=== PATIENT | female | born 1965 | race Caucasian/White ===

== ENCOUNTER → 2019-03-09 18:15 | Outpatient (BNVA) | payer MEDICAID, SELFPAY | PROVIDERS: PCP Emergency Medicine; Visit Provider Family Medicine | DX: M79.10 Myalgia, unspecified site (principal); Z71.89 Other specified counseling | CPT/HCPCS: 80305 ==

== ENCOUNTER 2019-08-14 13:46 | Emergency (ER) | payer MEDICAID, SELFPAY ==
[2019-08-14 15:00] VITALS: BP 163/116; PULSE 95; RESP 16; TEMP 36.6; O2SAT 98; BMI 27.4
--- NOTE | 2019-08-14 15:07 | XR_ITS ---
WS: [id number] XR lumbar spine 2-3V* [id number] REASON FOR EXAM: fall with back pain FINDINGS: 5 functional lumbar vertebra as are noted. Settling of the disc spaces L4-5, L5-S1. There is no fractures of the lumbar spine seen. No evidence of spondylolysis or spondylolisthesis. There is facet arthropathy L4-5, L5-S1 particularly on the right side. XR/XR lumbar spine 2-3V* [id number] IMPRESSION: Facet arthropathy L4-5, L5-S1 on the right There is no fractures seen. Degenerated disc changes L4-5, L5-S1.
--- NOTE | 2019-08-14 15:07 | XR_ITS ---
WS: [id number] XR thoracic spine 2V [id number] REASON FOR EXAM: fall with pain FINDINGS: The spondylolisthesis C4-5 is again seen. The cervical thoracic junction appears to be normal. There is degenerate changes throughout the thoracic spine. [place] no fractures are seen or displaceme nts seen. There is spurring anteriorly from T3 down to T9. XR/XR thoracic spine 2V [id number] IMPRESSION: Osteoarthritic changes thoracic spine. No fractures identified.
--- NOTE | 2019-08-14 15:07 | XR_ITS ---
WS: [id number] XR cervical spine 3V* [id number] REASON FOR EXAM: fall with pain FINDINGS: Degenerate changes of the joints of [place]. C4-C5 shows grade 2 spondylolisthesis. A remot e mild compression of the anterior body C5 is seen. The odontoid process was normal. The lamina, pedicles, spinous processes are all normal and straight. XR/XR cervical spine 3V* [id number] IMPRESSION: Grade 2 spondylolisthesis C4 on C5 with a remote mild compression of C5
== END 2019-08-14 16:51 | disposition left against medical advice (07) ==
LOC: ER 13:54
PROVIDERS: Emergency Provider Emergency Medicine; PCP Emergency Medicine
DX: Z53.21 Procedure and treatment not carried out due to patient leaving prior to being seen by health care provider (principal)
CPT/HCPCS: 72040; 72070; 72100; 99281; 99283

== ENCOUNTER → 2019-08-15 11:06 | Outpatient (BNVA) | payer MEDICAID, SELFPAY | PROVIDERS: PCP Emergency Medicine; Visit Provider Family Medicine | DX: I10 Essential (primary) hypertension (principal); S20.211A Contusion of right front wall of thorax, initial encounter; X58.XXXA Exposure to other specified factors, initial encounter | CPT/HCPCS: 80053; 80061 ==

== ENCOUNTER → 2020-03-21 12:00 | Outpatient (BNVA) | payer MEDICAID, SELFPAY | PROVIDERS: PCP Emergency Medicine; Visit Provider Nurse Practitioner Family | DX: Z20.828 Contact with and (suspected) exposure to other viral communicable diseases (principal); B34.9 Viral infection, unspecified | CPT/HCPCS: 87635 ==

== ENCOUNTER → 2021-12-07 12:00 | Outpatient (BNVA) | payer MEDICAID, SELFPAY | PROVIDERS: PCP Family Medicine; Visit Provider Family Medicine | DX: F41.1 Generalized anxiety disorder (principal); G43.709 Chronic migraine without aura, not intractable, without status migrainosus; E78.5 Hyperlipidemia, unspecified; K21.9 Gastro-esophageal reflux disease without esophagitis; F51.04 Psychophysiologic insomnia; K58.9 Irritable bowel syndrome, unspecified; N32.81 Overactive bladder; E78.2 Mixed hyperlipidemia; I10 Essential (primary) hypertension; J44.9 Chronic obstructive pulmonary disease, unspecified; Z23 Encounter for immunization; Z74.09 Other reduced mobility; Z78.9 Other specified health status; G80.8 Other cerebral palsy; K58.0 Irritable bowel syndrome with diarrhea; M79.89 Other specified soft tissue disorders | CPT/HCPCS: 80053; 80061; 85025 ==

== ENCOUNTER → 2022-05-25 11:51 | Outpatient (BNVA) | payer MEDICAID, SELFPAY | PROVIDERS: PCP Family Medicine; Visit Provider Family Medicine | DX: F32.9 Major depressive disorder, single episode, unspecified (principal); K58.9 Irritable bowel syndrome, unspecified; N32.81 Overactive bladder; K21.9 Gastro-esophageal reflux disease without esophagitis; G43.709 Chronic migraine without aura, not intractable, without status migrainosus; F51.04 Psychophysiologic insomnia; F41.1 Generalized anxiety disorder; E78.5 Hyperlipidemia, unspecified; M79.671 Pain in right foot; M79.672 Pain in left foot; L97.529 Non-pressure chronic ulcer of other part of left foot with unspecified severity; L97.519 Non-pressure chronic ulcer of other part of right foot with unspecified severity | CPT/HCPCS: 73630 ==

== ENCOUNTER 2024-08-22 13:54 | Emergency (ER) | payer MEDICAID, SELFPAY ==
--- OUTSIDE RECORDS SUMMARY | 2012-12-05 09:26 | XMS_ITS | Continuity of Care Document ---
Author Organization [facility] Address [id number] [address] Phone Care Team Providers Care Insurance Territory Manager Name Role Phone Unavailable Unavailable Unavailable Allergies, Adverse Reactions, Alerts Substance Reaction Status Criticality codeine Active No Information Medications Medication Instructions Dosage Effective Dates (start - stop) Status Comments Cymbalta 60 mg capsule,delayed release take 1 capsule by oral route every day 60 MG - Active Dr. Kessler tizanidine 4 mg tablet take 2 Tablet by oral route everyday at noon - Active Vesicare 10 mg tablet take 1 tablet by oral route every day 10 MG - Active Plus 27 mg-1 mg tablet take 1 tablet by oral route every day - Active potassium chloride ER 20 mEq tablet,extended release(part/cryst) take 1 tablet by oral route every day 20 MEQ - Active oxybutynin chloride ER 15 mg tablet,24 hr extended release take 1 tablet by oral route every day 15 MG - Active verapamil ER (SR) 240 mg tablet,extended release take 1 tablet by oral route every day with food 240 MG - Active omeprazole 20 mg tablet,delayed release - Active Mucinex DM 30 mg-600 mg tablet,extended release 12 hr take 1 tablet by oral route every 12 hours as needed 1.00 tablet - Active gabapentin 400 mg capsule take 1 capsule by oral route 3 times every day 400 MG - Active cilostazol 100 mg tablet take 1 tablet by oral route 2 times every day 1/2 hour before or 2 hours after breakfast and dinner 100 MG - Active bupropion HCl SR 150 mg tablet,sustained-re lease take 1 tablet by oral route 2 times every day 150 MG - Active Procedures Procedure Date OFFICE/OUTPATIENT VISIT, [facility] Advance Directives Directive Yes / No Effective Date File Name No Information Encounters Encounter Description Practice Location Reason(s) For Visit Diagnoses Date Provider Providers Copied on Encounter [facility], [id number] [facility], [place], [place], [id number], [place] tel:[phone] [facility] No Information No Information OFFICE/OUTPA TIENT VISIT, [facility], [id number]- [facility], [place], [place], [id number], [place] tel:[phone] [facility] musculoskelet al pain (chief complaint)anx iety (chief complaint)dep ression (chief complaint) AnxietyDepres sionPain in joint, site unspecified No Information Family History Family Member Type Diagnosis Age At Onset Mother Problem (finding) Allergies grandparents Problem (finding) Allergies Father Problem (finding) Allergies Mother Problem (finding) depression Mother Problem (finding) raised blood lipids Father Problem (finding) hypertension Father Problem (finding) raised blood lipids Mother Problem (finding) Anxiety Father Problem (finding) depression Father Problem (finding) Anxiety Mother Problem (finding) alcoholism Mother Problem (finding) Hearing impairment grandparents Problem (finding) stroke Mother Problem (finding) hypertension Father Problem (finding) Hearing impairment grandparents Problem (finding) alzheimer's disease Payers Payer name Insurance type Covered democrat ID Jordan westbrook(s) [employer] [place] Medicaid MC [id number] Social History Type Description Quantity Date Captured Comments Sex Female Smoking Status No Information Chief Complaint And Reason For Visit No Information Reason For Referral Reason For Referral No Information History Of Present Illness Encounter Date Complaint History Of Prese nt Illness No Information Functional Status Date Functional Assessmen t No Information Instructions Date Instruction Additional Infor mation No Information Assessments Type Assessment Date No Information Patient Care Teams Name Effective Dates (start - stop) Status Members No Information
[2024-08-22 14:08] VITALS: PULSE 109; RESP 20; TEMP 36.7; O2SAT 97
--- OUTSIDE RECORDS SUMMARY | 2024-08-22 14:08 | XMS_ITS | Encounter Summary ---
Author Organization [facility] Address 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
--- OUTSIDE RECORDS SUMMARY | 2024-08-22 14:08 | XMS_ITS | Clinical Summary ---
Author Organization [facility] Address [address] Attn: [place] [address] Care Team Providers Care Construction Controller Name Role Phone Unavailable Primary Care Provider Unavailabl e Encounters Date Type Department Care Team Description 08/14/2024 External Device Data [facility] ABSTRACTION Provider, Abstract 08/07/2024 External Device Data [facility] ABSTRACTION Provider, Abstract 08/07/2024 External Device Data [facility] ABSTRACTION Provider, Abstract 08/07/2024 External Device Data [facility] ABSTRACTION Provider, Abstract 07/10/2024 8:45 AM CDT - 07/10/2024 11:59 PM CDT Hospital Encounter [facility] Emergency [facility] [address] [facility] [facility] [address] [place] [address] Ambulance, [facility] Discharge Disposition: Short term general hospital from Last 3 Months Social History Tobacco Use Types Packs/Day Years Used Date Smoking Tobacco: Never Assessed Comments Unknown Sex and Gender Information Value Date Recorded Sex Assigned at Not on file 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
--- OUTSIDE RECORDS SUMMARY | 2024-08-22 14:08 | XMS_ITS | Clinical Summary ---
Author Organization [facility] [place] Address [address] [place] [address] Phone Care Team Providers Care Hair Or Beauty Salon Manager Name Role Phone Unavailable Primary Care Provider Unavailabl e Social History Tobacco Use Types Packs/Day Years Used Date Smoking Tobacco: Never Assessed Comments Unknown Sex and Gender Information Value Date Recorded Sex Assigned at Not on file Legal Sex Female 2:04 PM CDT Gender Identity Not on file Sexual Orientation [...]
--- NOTE | 2024-08-22 14:13 | ED_ITS ---
HPI - Fall General: Chief Complaint: Fall Stated Complaint: Fall Time Seen by Provider: 08/22/24 14:05 Source: patient Mode of arrival: EMS Limitations: physical limitation (has CP) History of Present Illness: Patient is a 59-year-old female who reports to the ED via EMS for a ground-level fall. She states she was trying to transfer herself to her paul potty, when she mis-calculated and twisted her right knee and fell onto her right side. She says she has a home care provider, and that her home care provider was the one who called EMS but EMS reports she was gone by the time they got on scene. Patient now has R knee pain and left foot pain. She states she has a hard time moving around due to her cerebral palsy-she uses a wheelchair mainly but also has a walker. She denies hitting her head, losing consciousness, dizziness, heart palpitations. She has no neck or back pain. Patient has chronic wounds to the dorsal aspect of her feet bilaterally that she states have been present x 2 months. States she is going to follow up with PCP Dr. Oden and also trying to get referral to wound care. MD complaint: fall Onset (ago): hour(s) Fall from: standing Fall witnessed: yes, by bystander (Home care provider) Place fall occurred: home Loss of consciousness: None Prolonged down time: no Symptoms prior to fall: none Context: tripped/slipped Location of injury: other (R knee, L foot) Location of injury - extremities: Left: foot and Right: knee Severity: mild Quality: dull Associated symptoms-after fall: Reports no associated symptoms; Denies chest pain, headache(s), lightheadedness or neck pain Related Data Home Medications ?Medication ?Instructions ?Recorded ?Confirmed aspirin 81 mg tablet,delayed 81 mg PO DAILY 04/08/19 0 08/30/22 release Previous Rx's ?Medication ?Instructions ?Recorded [facility] 1 each [employer] .Blinkbuggy PLEX #1 ea 08/19/19 furosemide 20 mg tablet 20 mg PO DAILY PRN leg swell ing 11/16/20 Held on 12/07/21. days #30 tabs Instructions: Home Medication placed on hold at Doctor's office potassium chloride 20 mEq 20 meq PO DAILY PRN with las ix 11/16/20 tablet,extended days #30 tabs release(part/cryst) (Diane-Con M) Held on 12/07/21. Instructions: Home Medication placed on hold at Doctor's office miscellaneous medical supply See Rx Instructions misce llaneous 01/06/22 .COMPLEX #1 ea diaper,brief,adult,disposable #168 ea 01/29/22 aripiprazole 2 mg tablet (Abilify) 2 mg PO .at bedtime 90 days #90 05/25/22 tabs dicyclomine 20 mg tablet 20 mg PO BID 90 days #180 ta bs 05/25/22 duloxetine 20 mg capsule,delayed 20 mg PO DAILY 90 day s #90 caps 05/25/22 release fesoterodine 4 mg tablet,extended 4 mg PO DAILY 90 day s #90 tabs 05/25/22 release 24 hr (Toviaz) mirtazapine 7.5 mg tablet 7.5 mg PO DAILY 90 days #90 tabs 05/25/22 omeprazole 20 mg capsule,delayed 20 mg PO DAILY 90 day s #90 caps 05/25/22 release simvastatin 20 mg tablet 20 mg PO DAILY 90 days #90 t abs 05/25/22 tizanidine 4 mg tablet 4 mg PO BID PRN muscle spast icity 05/25/22 90 days #180 tabs topiramate 50 mg capsule,extended 50 mg PO DAILY 90 da ys #90 caps 05/25/22 release 24 hr sulfamethoxazole 800 1 tab PO Q12H 7 days #14 tab s 06/08/22 mg-trimethoprim 160 mg tablet (Bactrim DS) Allergies Allergy/AdvReac Type Severity Reaction Status Date / Time codeine Allergy Unknown Verified 08/30/22 13:31 meperidine (From Demerol) Allergy Unknown Verified 08/30/22 13:31 zolpidem (From Ambien) Allergy Unknown Verified 08/30/22 13:31 Review of Systems Const: Denies: fever(s), chills or body aches Eyes: Denies: change in vision or blurry vision Card: Denies: chest pain, palpitations, lightheadedness or syncope Resp: Denies: dyspnea : Denies: flank pain Musc: Reports: other (chronic contractures of extremities due to CP; atrophy); Denies: neck pain or back pain Skin/Breast: Reports: other (wounds to feet x 2 months) Neuro: Denies: headache(s) PFSH ED PFSH: Medical History (Updated 08/22/24 @ 14:47 by HANSEL Caba) Incontinence of urine in female Vitamin D deficiency Chronic migraine Leg swelling Has had a previously normal echo without any signs of CHF. Leg swelling due to poor circulation and lymphatics from cerebral palsy. Cerebral palsy Paraplegic GERD (gastroesophageal reflux disease) Insomnia Overactive bladder Hyperlipidemia Chronic pain of multiple joints Depression, controlled JAGRUTI (generalized anxiety disorder) Benign hypertension Surgical History H/O knee surgery S/P cholecystectomy Family History Father Heart disease Social History Smoking and tobacco/nicotine status: current every day tobacco/nicotine user cigarettes Packs smoked per day: 0.5 Quit status (tobacco/nicotine): not considering quitting Alcohol intake: current Alcohol intake frequency: holidays/special occasions only Physical Exam Const: COMMON NORMALS: no acute distress, patient oriented x3 and alert GENERAL APPEARANCE: cooperative OTHER: odorous, dirty in appearance HENMT: COMMON NORMALS: normocephalic and atraumatic HEAD & SCALP: normal to inspection, normocephalic and atraumatic Neck/C-Spine: COMMON NORMALS: full ROM CERVICAL SPINE: No Cervical spine tenderness Chest: COMMONS NORMALS: normal inspection of the chest and normal palpation of entire chest wall Resp: COMMON NORMALS: normal respiratory effort and clear to auscultation bilaterally AUSCULTATION: clear to auscultation bilaterally Cardio: COMMON NORMALS: regular rhythm RATE: tachycardic (mild) RHYTHM: regular rhythm GI: COMMON NORMALS: Normal to inspection, nondistended, normoactive bowel sounds present, Soft to palpation and non-tender PALPATION: Yes Soft to palpation Back/Pelvis: COMMON NORMALS: thoracic and lumbar spine normal to inspection Extremity: GENERAL: Yes normal exam except as noted RIGHT LOWER EXTREMITY: Yes knee joint Right knee: Yes neurovascular exam (normal) LEFT LOWER EXTREMITY: Yes foot & digits (TTP; chronic deformity) Left foot and digits: Yes neurovascular exam (normal) OTHER: atrophy to extremities from CP; she has superficial wounds to dorsal feet that she states have been present x 2 months-no discharge, streaking she has overlapping/crossed toes on L foot; complains of pain to bottom of foot and great toe since the fall pain to medial R knee-mild edema; fairly normal ROM Neuro: SERAFIN COMA SCALE: document GCS findings [place] coma scale eye opening: Spontaneous [place] coma scale verbal response: Orientated [place] coma scale motor response: Obey commands Serafin coma scale total score: 15 COMMON NORMALS: patient oriented x3 and moves all extremities SENSORIUM/ORIENTATION: Yes alert Course Vital Signs: Vital signs: Vital Signs Temperature 98.0 F 08/22/24 14:08 Pulse Rate 109 H 08/22/24 14:08 Respiratory Rate 20 H 08/22/24 14:08 Pulse Oximetry 97 08/22/24 14:08 MDM - Fall Medical Decision Making XR of R knee/L foot are negative for acute fracture. She will be allowed discharge. Her feet/wounds will be cleaned and dressed. She is already on abx for these. Plan is to follow up with PCP. I will place referral to wound care for continued care. Medical Records I reviewed the patient's medical records. Lab Data Radiology Impressions Foot X-Ray 08/22/24 14:15 IMPRESSION: 1. No fracture or bone destruction noted. 2. Lateral deviation of the first through the fourth toes. 3. Moderately advanced degenerative changes of the mid and hindfoot with pes planus. Additional findings as above. Knee X-Ray 08/22/24 14:15 IMPRESSION: 1. 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 2. No fracture. All radiology interpretation(s) finalized by discharge Discharge Plan Discharge Patient Disposition: Home Clinical Impression: Fall, Acute pain of right knee, Acute pain of left foot Condition: Stable Prescriptions: No Action aspirin 81 mg tablet,delayed release (DR/EC) 81 mg PO DAILY miscellaneous medical supply Misc 1 each miscellaneous .COMPLEX Qty: 1 0RF Rx Instructions: x1 ea miscellaneous Motorized wheel chair; size/type as needed after assessment potassium chloride [Klor-Con M20] 20 mEq tablet,ER particles/crystals 20 meq PO DAILY PRN (Reason: with lasix) 30 Days Qty: 30 0RF furosemide 20 mg tablet 20 mg PO DAILY PRN (Reason: leg swelling) 30 Days Qty: 30 0RF duloxetine 20 mg capsule,delayed release(DR/EC) 20 mg PO DAILY 90 Days Qty: 90 1RF dicyclomine 20 mg tablet 20 mg PO BID 90 Days Qty: 180 1RF fesoterodine [Toviaz] 4 mg tablet extended release 24 hr 4 mg PO DAILY 90 Days Qty: 90 1RF omeprazole 20 mg capsule,delayed release(DR/EC) 20 mg PO DAILY 90 Days Qty: 90 1RF tizanidine 4 mg tablet 4 mg PO BID PRN (Reason: muscle spasticity) 90 Days Qty: 180 1RF topiramate 50 mg capsule,extended release 24hr 50 mg PO DAILY 90 Days Qty: 90 1RF mirtazapine 7.5 mg tablet 7.5 mg PO DAILY 90 Days Qty: 90 1RF aripiprazole [Abilify] 2 mg tablet 2 mg PO .at bedtime 90 Days Qty: 90 1RF simvastatin 20 mg tablet 20 mg PO DAILY 90 Days Qty: 90 1RF miscellaneous medical supply Misc See Rx Instructions miscellaneous .COMPLEX Qty: 1 0RF Rx Instructions: Quad self standing cane with soft firer low pressure handle as directed; (DME) diaper,brief,adult,disposable Misc See Rx Instructions .ROUTE .MEDSUPPLY Qty: 168 11RF Rx Instructions: 1 PULL UP BRIEF 6 TIMES DAILY sulfamethoxazole-trimethoprim [Bactrim DS] 800-160 mg tablet 1 tab PO Q12H 7 Days Qty: 14 0RF Discharge Orders: Discharge ED (Routine); Ordered 08/22/24 Ordered By: Lily Plummer Patient Instructions: Patient Portal & Reza Instructions Activity Restrictions/Additional Instructions: As we discussed, please follow-up with your primary care provider soon as possible for evaluation of the wounds to your feet. I went ahead and placed a case management referral to get you set up with wound care as well. Continue current antibiotic therapy. You need to seek medical reevaluation for worsening wounds, redness streaking up your leg, purulent or odorous drainage from the wounds, fevers, generally feeling worse or unwell, or any other concerns you may have. Print Language: [place] Coding Level of Care Code ED Viscosity Tester for Edward Figueroa
--- NOTE | 2024-08-22 14:15 | XR_ITS ---
WS: [id number] Exam: XR foot LT min 3V* [id number] Date/Time of Exam: 08/22/2024 2:21 PM Reason For Exam: fall No acute fracture. Hallux valgus as well as lateral deviation of the second third and fourth toes. Degenerative changes in the midfoot joints. Marked pes planus. Fused subtalar joints. XR/XR foot LT min 3V* [id number] IMPRESSION: 1. No fracture or bone destruction noted. 2. Lateral deviation of the first through the fourth toes. 3. Moderately advanced degenerative changes of the mid and hindfoot with pes pl anus. Additional findings as above.
--- NOTE | 2024-08-22 14:15 | XR_ITS ---
WS: [id number] Exam: XR knee RT 3V* [id number] Date/Time of Exam: 08/22/2024 2:21 PM Reason For Exam: fall No fracture. Marked valgum deformity of the knee. Moderately advanced tricompartmental DJD. No joint effusion. Soft tissues otherwise unremarkable. XR/XR knee RT 3V* [id number] IMPRESSION: 1. 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 2. No fracture.
--- NOTE | 2024-08-22 15:09 | PC.NURSE ---
Redressed pt wounds with non adhesive pad and kerlex.
[2024-08-22 16:14] VITALS: BP 154/68; PULSE 92; O2SAT 98
--- NOTE | 2024-08-23 08:35 | DCPLANNER ---
messaged wound care for er f/u
== END 2024-08-22 16:15 | disposition home or self-care (01) ==
PROVIDERS: Emergency Provider Physician Assistant
DX: M25.561 Pain in right knee (principal); M79.672 Pain in left foot; Z79.82 Long term (current) use of aspirin; F17.210 Nicotine dependence, cigarettes, uncomplicated; E78.5 Hyperlipidemia, unspecified
CPT/HCPCS: 73562; 73630; 99284

== ENCOUNTER → 2024-09-12 13:10 | Outpatient (BNVA) | payer MEDICAID, SELFPAY | PROVIDERS: Visit Provider Thoracic Surgery (Cardiothoracic Vascular Surgery) | DX: I96 Gangrene, not elsewhere classified (principal); L97.521 Non-pressure chronic ulcer of other part of left foot limited to breakdown of skin; L97.511 Non-pressure chronic ulcer of other part of right foot limited to breakdown of skin; L97.811 Non-pressure chronic ulcer of other part of right lower leg limited to breakdown of skin | CPT/HCPCS: 97597; A6210; A6248 ==

== ENCOUNTER → 2024-10-10 14:49 | Outpatient (BNVA) | payer MEDICAID, SELFPAY | PROVIDERS: Visit Provider Thoracic Surgery (Cardiothoracic Vascular Surgery) | DX: I96 Gangrene, not elsewhere classified (principal); L97.521 Non-pressure chronic ulcer of other part of left foot limited to breakdown of skin; L97.511 Non-pressure chronic ulcer of other part of right foot limited to breakdown of skin; L97.811 Non-pressure chronic ulcer of other part of right lower leg limited to breakdown of skin | CPT/HCPCS: 97597; A6210 ==